=== PATIENT | female | born 1965 | race Caucasian/White ===

== ENCOUNTER 2022-02-25 17:05 | Emergency (ER) | payer OTHER, SELFPAY ==
--- NOTE | 2022-02-25 17:20 | ED.EYEPROB ---
HPI - Eye Problem General Chief complaint: Eye Problems Stated complaint: redness in eyes Time Seen by Provider: 02/25/22 17:20 Source: patient Mode of arrival: ambulatory Limitations: no limitations History of Present Illness HPI Narrative: [age] female presents with complaint of congestion, postnasal drainage for over week. Taking [id number] medications without relief. Afebrile. States now she has redness to right eye with yellow drainage since yesterday. No chest pain or shortness of breath. Denies nausea vomiting diarrhea. All systems reviewed and negative except as noted above. Related Data Home Medications Medication Instructions Recorded Confirmed atenolol 50 mg tablet 50 mg PO DAILY 02/25/22 02/25/22 fosinopril 10 mg tablet 10 mg PO DAILY 02/25/22 02/25/22 Allergies Allergy/AdvReac Type Severity Reaction Status Date / Time No Known Allergies Allergy Verified 02/25/22 17:25 Review of Systems Review of Systems: CONSTITUTIONAL: Denies fever, chills, or sweats. EYES: Denies visual changes . Reports right eye redness and drainage. ENT: Reports rhinorrhea, congestion, sore throat. Denies otalgia. CARDIOVASCULAR: Denies chest pain, palpitations, or edema. RESPIRATORY: Denies cough or dyspnea. GASTROINTESTINAL: Denies abdominal pain, nausea, vomiting, or diarrhea. GENITOURINARY: Denies dysuria or hematuria. SKIN: Denies rash or itching. MUSCULOSKELETAL: Denies back pain, joint pain, or myalgia. NEUROLOGIC: Denies headache, numbness, or weakness. PSYCHIATRIC: Denies anxiety or depression. All other systems reviewed are negative, except as documented in HPI. PMFSH Comments At time of signature, agree with nursing past medical, surgical, social and family history. There is no relevant family history pertinent to the presenting complaint. Exam Narrative: GENERAL: This is a well-nourished, well-developed patient, in no apparent distress. HEAD: normocephalic, atraumatic. EYES: PERRL. right eye Sclera and conjunctiva in a erythematous with yellow drainage. Vision is grossly intact. EARS: External ears normal, auditory canals clear and without drainage, TMs normal without perforation. Hearing grossly intact. NOSE: External nose normal with Cloudy thick nasal drainage with erythema and swelling to both nares. Moderate congestion. THROAT: Mucous membranes moist, posterior pharynx clear. NECK: Neck supple, non-tender without lymphadenopathy, masses or thyromegaly. CARDIOVASCULAR: Regular rate and rhythm without murmurs, gallops, or rubs. RESPIRATORY: Clear to auscultation. Breath sounds equal bilaterally. No wheezes, rales, or rhonchi. SKIN: warm, Dry, intact with no suspicious lesions or rash, good texture and turgor. NEURO: awake, alert, and oriented to person, place and time. There were no obvious focal neurologic abnormalities. EXTREMITIES: No joint tenderness, effusion, or edema noted. Course Course Level of Care: Express Care Visit Vital Signs Vital signs: Vital Signs Temperature 36.7 C 02/25/22 17:21 Pulse Rate 83 02/25/22 17:21 Respiratory Rate 18 02/25/22 17:21 Blood Pressure 147/92 H 02/25/22 17:21 Pulse Oximetry 98 02/25/22 17:21 Oxygen Delivery Room Air 02/25/22 17:21 Temperature 36.7 C 02/25/22 17:21 Pulse Rate 83 02/25/22 17:21 Respiratory Rate 18 02/25/22 17:21 Blood Pressure 147/92 H 02/25/22 17:21 Pulse Oximetry 98 02/25/22 17:21 Oxygen Delivery Room Air 02/25/22 17:21 Reviewed MDM - Eye Problem MDM Narrative Medical decision making narrative: Patient is aware of diagnosis, understands and agrees to treatment plan. Anticipatory guidance given. Patient agrees to follow-up as directed and is aware of reasons to seek care at the emergency department. Portions of this record may have been created with voice recognition software Discharge Plan Discharge Clinical Impression: Acute bacterial sinusitis, Acute bacter
[2022-02-25 17:21] VITALS: BP 147/92; PULSE 83; RESP 18; TEMP 36.7; O2SAT 98
== END 2022-02-25 17:55 | disposition home or self-care (01) ==
PROVIDERS: Emergency Provider Nurse Practitioner Family
DX: J01.90 Acute sinusitis, unspecified (principal); H10.31 Unspecified acute conjunctivitis, right eye; I10 Essential (primary) hypertension
CPT/HCPCS: 99213; G0463